=== PATIENT | female | born 2000 | race African-American/Black ===

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

== ENCOUNTER 2022-03-22 20:59 | Inpatient (IN) ==
[2022-03-22] MEDS ORDERED: ONDANSETRON 4 MG/2 ML VIAL IV PRN (21:18)
[2022-03-22] MEDS ORDERED: ACETAMINOPHEN 500 MG TABLET PO PRN (21:18)
[2022-03-22] MEDS ORDERED: OXYTOCIN/LR 20 UNIT/1,000 ML BAG IV ONE (21:18)
[2022-03-22] MEDS ORDERED: METHYLERGONOVINE 0.2 MG/1 ML AMP IM PRN (21:18)
[2022-03-22] MEDS ORDERED: TRANEXAMIC ACID 1,000 MG in SODIUM CHLORIDE 0.9% 100 ML IV PRN (21:18)
[2022-03-22] MEDS ORDERED: MEPERIDINE 50 MG/1 ML VIAL IV PRN ×2 (21:18→21:31)
[2022-03-22] MEDS ORDERED: LACTATED RINGERS 250 ML IV ONE (21:18)
[2022-03-22] MEDS ORDERED: miSOPROStoL 200 MCG TABLET RECTAL PRN (21:18)
[2022-03-22] MEDS ORDERED: LACTATED RINGERS 500 ML IV PRN (21:18)
[2022-03-22] MEDS ORDERED: BUTORPHANOL 1 MG/ML VIAL IV PRN (21:18)
[2022-03-22] MEDS ORDERED: BUTORPHANOL 2 MG/ML VIAL IV PRN (21:18)
[2022-03-22] MEDS ORDERED: CARBOPROST TROMETHAMINE 250 MCG/ML AMP IM PRN (21:18)
[2022-03-22 21:54] LABS: Basophils % 0.2 % (0.0-0.8); Eosinophils # 0.1 10*3/uL (0.0-0.87); Eosinophils % 0.7 % (0.00-10.9); Hematocrit 28.9 VOL% (35.7-47.0); Hemoglobin 9.1 GM/DL (12.0-16.0); Immature Granulocytes % 0.9 %; Immature Granulocytes Absolute 0.08 #; Lymphocytes # 2.3 10*3/uL (1.4-4.0); Lymphocytes % 25.5 % (21.3-54.2); Mean Corpuscular HGB Conc 31.5 GM/DL (32-36); Mean Corpuscular Volume 82.8 FL (87-102); Mean Platelet Volume 11.1 FL (9.6-12.0); Monocytes # 0.6 10*3/uL (0.11-0.8); Monocytes % 6.1 % (1.7-12.7); Neutrophils % 66.6 % (38.7-73.9); Platelet Count 226 T/CUMM (130-400); Red Blood Count 3.49 MC/CUMM (3.8-5.5); Red Cell Distribution Width 14.4 % (9.3-17.3)
[2022-03-22 22:12] LABS: Alanine Aminotransferase 12 U/L (13-56); Albumin 2.6 G/DL (3.4-5.0); Alkaline Phosphatase 136 U/L (45-117); Aspartate Amino Transferase 11 U/L (0-37); Bilirubin,Total < 0.39 MG/DL (0.20-1.00); Blood Urea Nitrogen 8 MG/DL (7-18); Calcium 8.6 MG/DL (8.5-10.1); Carbon Dioxide 21 MMOL/L (21-32); Chloride 109 MMOL/L (98-107); Glucose 102 MG/DL (74-106); Osmolality,Calculated 272.7 MOS/KG (273-304); Potassium 3.6 MMOL/L (3.5-5.1); Sodium 138 MMOL/L (136-145); Total Protein 6.6 G/DL (6.4-8.2)
[2022-03-23] MEDS: LACTATED RINGERS 1,000 ML IV SCH ×4 (09:33→23:57)
[2022-03-23] MEDS: OXYTOCIN/LR 20 UNIT/1,000 ML BAG IV SCH (09:33)
[2022-03-23] MEDS ORDERED: CITRIC ACID/SODIUM CITRATE 30 ML UDCUP PO ONE (15:09)
[2022-03-23] MEDS ORDERED: diphenhydrAMINE 50 MG/1 ML VIAL IV PRN ×2 (15:09)
[2022-03-23] MEDS ORDERED: NALOXONE 0.4 MG/ML VIAL IV PRN (15:09)
[2022-03-23] MEDS ORDERED: FAMOTIDINE 20 MG/2 ML VIAL IV ONE (15:09)
[2022-03-23] MEDS ORDERED: fentaNYL 100 MCG/2 ML VIAL IV ONE (15:09)
[2022-03-23] MEDS: fentaNYL 2 MCG/ROPIV 0.2% EPID 100 ML EPIDURAL SCH (15:51)
[2022-03-23] MEDS ORDERED: TERBUTALINE 1 MG/1 ML VIAL ONE (16:05)
[2022-03-23] MEDS ORDERED: TERBUTALINE 1 MG/1 ML VIAL SUBCUT ONE (16:14)
[2022-03-23] MEDS: ePHEDrine 50 MG/ML VIAL IV PRN ×2 (16:18→16:26)
[2022-03-23 16:48] LABS: Bilirubin,Urine Negative (Negative); Blood, Urine Moderate mg/dL (Negative); Glucose,Urine (UA) Negative (Negative); Ketones,Urine >160 mg/dL (Negative); Mucus,Urine Few /LPF (Occasional); Nitrite,Urine Negative (Negative); Protein,Urine Negative (Negative); RBC,Urine 51 /HPF (0-4); Squamous Epithelial Cell,Urine Occasional /HPF (0-10); Urine Appearance Clear (Clear); Urine Color Yellow (Yellow)
[2022-03-23 16:49] LABS: Urine Urobilinogen 0.2 eU/dL (<2.0)
[2022-03-24] MEDS: fentaNYL 2 MCG/ROPIV 0.2% EPID 100 ML EPIDURAL SCH ×2 (00:37→09:36)
[2022-03-24] MEDS: OXYTOCIN/LR 20 UNIT/1,000 ML BAG IV SCH ×2 (07:48→17:44)
[2022-03-24] MEDS ORDERED: TRANEXAMIC ACID 1,000 MG/10 ML VIAL ONE (07:54)
[2022-03-24] MEDS ORDERED: SODIUM CHLORIDE 0.9% 0 ML IV ONE (07:54)
[2022-03-24] MEDS ORDERED: miSOPROStoL 200 MCG TABLET ONE (07:54)
[2022-03-24] MEDS ORDERED: METHYLERGONOVINE 0.2 MG/1 ML AMP ONE (07:55)
[2022-03-24] MEDS ORDERED: CARBOPROST TROMETHAMINE 250 MCG/ML AMP IM ONE (07:55)
[2022-03-24] MEDS: LACTATED RINGERS 1,000 ML IV SCH (09:10)
[2022-03-24] MEDS ORDERED: diphenhydrAMINE 50 MG/1 ML VIAL IM ONE (11:29)
[2022-03-24 14:57] LABS: Cord Arterial Blood HCO3 18.8 MMOL/L
[2022-03-24 14:59] LABS: Cord Venous Blood PCO2 38.2 MMHG; Cord Venous Blood PO2 33.6
[2022-03-24] MEDS ORDERED: WITCH HAZEL PADS 100/JAR TOP PRN (17:43)
[2022-03-24] MEDS ORDERED: RHO(D) IMMUNE GLOBULIN 300 MCG SYRINGE IM ONE (17:43)
[2022-03-24] MEDS ORDERED: oxyCODONE/ACETAMINOPHEN 5-325 MG TABLET PO PRN ×2 (17:43)
[2022-03-24] MEDS ORDERED: BENZOCAINE 20%/MENTHOL 0.5% SPRAY 56 GM CAN TOP PRN (17:43)
[2022-03-24] MEDS ORDERED: BISACODYL 10 MG SUPP RECTAL PRN (17:43)
[2022-03-24] MEDS ORDERED: ACETAMINOPHEN 325 MG TABLET PO PRN (17:43)
[2022-03-24] MEDS ORDERED: DIPH/TET/ACEL PERT BOOSTER VACCINE 0.5 ML VIAL IM ONE (17:43)
[2022-03-24] MEDS ORDERED: MEASLES/MUMPS/RUBELLA VACCINE 0.5 ML VIAL SUBCUT ONE (17:43)
[2022-03-24] MEDS ORDERED: OXYTOCIN/LR 20 UNIT/1,000 ML BAG IV ONE (17:43)
[2022-03-24] MEDS ORDERED: LANOLIN 50% CREAM 0.3 OZ TUBE TOP PRN (17:43)
[2022-03-24] MEDS ORDERED: HYDROCORTISONE 2.5% RECTAL CREAM 30 GM TUBE TOP PRN (17:43)
[2022-03-24] MEDS: IBUPROFEN 800 MG TABLET PO PRN (19:28)
[2022-03-24] MEDS: DOCUSATE SODIUM 100 MG CAPSULE PO SCH (21:05)
[2022-03-25 06:36] LABS: Basophils % 0.3 % (0.0-0.8); Eosinophils # 0.1 10*3/uL (0.0-0.87); Eosinophils % 1.1 % (0.00-10.9); Hematocrit 27.8 VOL% (35.7-47.0); Hemoglobin 8.5 GM/DL (12.0-16.0); Immature Granulocytes % 0.7 %; Immature Granulocytes Absolute 0.08 #; Lymphocytes # 2.7 10*3/uL (1.4-4.0); Lymphocytes % 23.9 % (21.3-54.2); Mean Corpuscular HGB Conc 30.6 GM/DL (32-36); Mean Corpuscular Volume 85.3 FL (87-102); Mean Platelet Volume 11.3 FL (9.6-12.0); Monocytes % 9.1 % (1.7-12.7); Neutrophils % 64.9 % (38.7-73.9); Platelet Count 207 T/CUMM (130-400); Red Blood Count 3.26 MC/CUMM (3.8-5.5); Red Cell Distribution Width 14.3 % (9.3-17.3); White Blood Count 11.2 T/CUMM (4-12)
[2022-03-25] MEDS: DOCUSATE SODIUM 100 MG CAPSULE PO SCH ×2 (09:39→20:58)
[2022-03-25] MEDS ORDERED: MAGNESIUM HYDROXIDE SUSP 30 ML UDCUP PO PRN (10:03)
[2022-03-26 08:30] VITALS: BP 127/64
[2022-03-26] MEDS: IBUPROFEN 800 MG TABLET PO PRN (09:38)
[2022-03-26] MEDS: DOCUSATE SODIUM 100 MG CAPSULE PO SCH (09:38)
== END 2022-03-26 11:58 | disposition home or self-care (01) | DRG 560 ==
LOC: N.LD 20:59 → N.OB 03-24 18:00
PROVIDERS: ADMIT Obstetrics & Gynecology; ATTEND Obstetrics & Gynecology